=== PATIENT | female | born 1985 | race Caucasian/White ===

== ENCOUNTER 2016-10-01 21:21 | Inpatient (IN) | payer SELFPAY ==
[~2016-10-01] VITALS: Ht 175.3 cm; Wt 54.4 kg
[2016-10-01] MEDS ORDERED: HYDROCODONE/APAP 5/325MG 1 EACH TABLET ONE (21:43)
[2016-10-01] MEDS ORDERED: HYDROCODONE/APAP 5/325MG 1 EACH TABLET PO ONE (22:00)
[2016-10-01] MEDS ORDERED: HYDROMORPHONE INJ 2 MG/ML DISP.SYRIN ONE (22:53)
[2016-10-01] MEDS ORDERED: ONDANSETRON 4 MG TAB.RAPDIS ONE ×2 (22:54→23:43)
[2016-10-01] MEDS ORDERED: ONDANSETRON 4 MG TAB.RAPDIS SL ONE (23:00)
[2016-10-01] MEDS ORDERED: HYDROMORPHONE INJ 2 MG/ML DISP.SYRIN IM ONE (23:00)
[2016-10-02] MEDS ORDERED: MAG HYDROX/AL HYDROX/SIMETH 30 ML UDC PO PRN (00:30)
[2016-10-02] MEDS ORDERED: ZOLPIDEM TARTRATE 5 MG TABLET PO PRN (00:30)
[2016-10-02] MEDS ORDERED: Z GUARD REMEDY 2 OZ OINT TP PRN (00:30)
[2016-10-02] MEDS ORDERED: MAGNESIUM HYDROXIDE 30 ML UDC PO PRN (00:30)
[2016-10-02] MEDS ORDERED: ACETAMINOPHEN 325 MG TABLET PO PRN (00:30)
[2016-10-02 01:30] VITALS: BP 102/69
[2016-10-02] MEDS ORDERED: HYDROCODONE/APAP 5/325MG 1 EACH TABLET ONE (01:54)
[2016-10-02] MEDS: ONDANSETRON HCL/PF 4 MG/2 ML VIAL IVP PRN ×2 (02:26→20:23)
[2016-10-02] MEDS: HYDROCODONE/APAP 5/325MG 1 EACH TABLET PO PRN ×5 (02:27→23:32)
[2016-10-02] MEDS ORDERED: MORPHINE SULFATE INJ 4 MG/ML DISP.SYRIN ONE (03:27)
[2016-10-02] MEDS ORDERED: MORPHINE SULFATE INJ 2 MG/ML DISP.SYRIN ONE (03:34)
[2016-10-02] MEDS: MORPHINE SULFATE INJ 2 MG/ML DISP.SYRIN IV PRN ×5 (03:37→21:16)
[2016-10-02 05:56] VITALS: BP 102/69
[2016-10-02 07:31] VITALS: BP 122/76
[2016-10-02 16:00] VITALS: BP 112/78
[2016-10-02 16:29] LABS: BASOPHILS % (AUTO) 0.5 % (0.0-2.0); DIFF TOTAL % 100 %; EOSINOPHILS % (AUTO) 0.2 % (0.0-6.0); HEMATOCRIT 33 % (33-45); HEMOGLOBIN 11.2 g/dL (11.5-14.8); LYMPHOCYTES # (AUTO) 1.2 /CMM (0.8-4.8); LYMPHOCYTES % (AUTO) 20.3 % (20.0-44.0); MEAN CORPUSCULAR HEMOGLOBIN 29 PG (26.0-33.0); MEAN CORPUSCULAR HGB CONC 34 g/dl (31.0-36.0); MEAN CORPUSCULAR VOLUME 86 fL (82-100); MONOCYTES # (AUTO) 0.6 /CMM (0.1-1.30); MONOCYTES % (AUTO) 9.6 % (2.0-12.0); NEUTROPHILS # (AUTO) 4.2 /CMM (1.8-8.9); NEUTROPHILS % (AUTO) 69.4 % (43.0-81.0); PLATELET COUNT (AUTO) 250 /CMM (150-450); RED BLOOD CELL COUNT(AUTO) 3.84 MIL/uL (4.0-5.2); WHITE BLOOD COUNT (AUTO) 6.1 K/uL (4.3-11.0)
[2016-10-02 16:37] LABS: CALCIUM, SERUM 8.6 mg/dL (8.5-10.1); CREATININE 0.9 mg/dL (0.6-1.3); POTASSIUM 3.8 mmol/L (3.5-5.1)
[2016-10-02 17:33] LABS: IRON, SERUM 185 ug/dl (50-175); PERCENT SATURATION 52 % (14-33); TOTAL IRON BINDING CAPACITY 353 ug/dl (250-450)
[2016-10-02 20:00] VITALS: BP 104/65
[2016-10-03 01:50] VITALS: BP 110/69
[2016-10-03] MEDS: MORPHINE SULFATE INJ 2 MG/ML DISP.SYRIN IV PRN ×4 (01:53→22:09)
[2016-10-03 05:50] VITALS: BP 105/66
[2016-10-03 06:59] LABS: BASOPHILS % (AUTO) 0.3 % (0.0-2.0); DIFF TOTAL % 100 %; EOSINOPHILS # (AUTO) 0.1 /CMM (0.0-0.7); HEMATOCRIT 33 % (33-45); HEMOGLOBIN 10.9 g/dL (11.5-14.8); LYMPHOCYTES # (AUTO) 1.5 /CMM (0.8-4.8); LYMPHOCYTES % (AUTO) 25.7 % (20.0-44.0); MEAN CORPUSCULAR HEMOGLOBIN 29 PG (26.0-33.0); MEAN CORPUSCULAR HGB CONC 33 g/dl (31.0-36.0); MEAN CORPUSCULAR VOLUME 88 fL (82-100); MONOCYTES # (AUTO) 0.5 /CMM (0.1-1.30); MONOCYTES % (AUTO) 9.1 % (2.0-12.0); NEUTROPHILS # (AUTO) 3.7 /CMM (1.8-8.9); NEUTROPHILS % (AUTO) 63.9 % (43.0-81.0); PLATELET COUNT (AUTO) 245 /CMM (150-450); RED BLOOD CELL COUNT(AUTO) 3.76 MIL/uL (4.0-5.2); WHITE BLOOD COUNT (AUTO) 5.8 K/uL (4.3-11.0)
[2016-10-03 07:03] LABS: INR 1.03 (0.87-1.13); PROTHROMBIN TIME 11.1 SECS (9.5-12.7)
[2016-10-03 07:13] LABS: CALCIUM, SERUM 8.3 mg/dL (8.5-10.1); CREATININE 0.8 mg/dL (0.6-1.3); PHOSPHORUS 3.5 mg/dL (2.5-4.9); POTASSIUM 4.1 mmol/L (3.5-5.1)
[2016-10-03 08:00] VITALS: BP 102/65
[2016-10-03] MEDS: HYDROCODONE/APAP 5/325MG 1 EACH TABLET PO PRN ×2 (08:33→23:53)
[2016-10-03] MEDS ORDERED: ANESTHESIA TRAY IN PYXIS 1 EA TRAY MC ONE ×2 (10:26→13:50)
[2016-10-03] MEDS ORDERED: BACITRACIN 50000 UNITS/VIAL ONE (10:33)
[2016-10-03] MEDS ORDERED: BUPIVACAINE MPF 0.5% W/EPI INJ 30 ML VIAL ONE (11:28)
[2016-10-03 14:00] VITALS: BP 103/69
[2016-10-03 16:00] VITALS: BP 107/64
[2016-10-03 20:00] VITALS: BP 103/66
[2016-10-03] MEDS: ANCEF 1 GM/50 ML D5W IV SCH ×2 (20:13)
[2016-10-03] MEDS ORDERED: IV SET PRIMARY PUMP SET 1 EA INFUS.SET MC ONE (20:40)
[2016-10-03] MEDS ORDERED: SECONDARY IV SET 1 EA INFUS.SET MC ONE (20:40)
[2016-10-04] MEDS: MORPHINE SULFATE INJ 2 MG/ML DISP.SYRIN IV PRN ×4 (02:29→17:03)
[2016-10-04] MEDS: ANCEF 1 GM/50 ML D5W IV SCH ×2 (04:51)
[2016-10-04] MEDS: HYDROCODONE/APAP 5/325MG 1 EACH TABLET PO PRN ×3 (04:53→15:16)
[2016-10-04 06:39] LABS: BASOPHILS % (AUTO) 0.3 % (0.0-2.0); DIFF TOTAL % 100 %; EOSINOPHILS % (AUTO) 0.3 % (0.0-6.0); HEMATOCRIT 30 % (33-45); HEMOGLOBIN 9.8 g/dL (11.5-14.8); LYMPHOCYTES # (AUTO) 1.9 /CMM (0.8-4.8); LYMPHOCYTES % (AUTO) 24.5 % (20.0-44.0); MEAN CORPUSCULAR HEMOGLOBIN 29 PG (26.0-33.0); MEAN CORPUSCULAR HGB CONC 33 g/dl (31.0-36.0); MEAN CORPUSCULAR VOLUME 88 fL (82-100); MONOCYTES # (AUTO) 0.6 /CMM (0.1-1.30); MONOCYTES % (AUTO) 8.1 % (2.0-12.0); NEUTROPHILS # (AUTO) 5.2 /CMM (1.8-8.9); NEUTROPHILS % (AUTO) 66.8 % (43.0-81.0); PLATELET COUNT (AUTO) 219 /CMM (150-450); RED BLOOD CELL COUNT(AUTO) 3.38 MIL/uL (4.0-5.2); WHITE BLOOD COUNT (AUTO) 7.8 K/uL (4.3-11.0)
[2016-10-04 07:01] LABS: CREATININE 0.8 mg/dL (0.6-1.3); PHOSPHORUS 3.4 mg/dL (2.5-4.9); POTASSIUM 3.3 mmol/L (3.5-5.1)
[2016-10-04 08:00] VITALS: BP 105/68
[2016-10-04] MEDS ORDERED: HYDR-3326 PO (09:05)
[2016-10-04] MEDS ORDERED: CEPH-570 PO (09:05)
[2016-10-04] MEDS ORDERED: POTASSIUM CHLORIDE 20 MEQ TAB.PRT.SR PO ONE (09:30)
== END 2016-10-04 18:28 | disposition home health service (06) | DRG 494 ==
LOC: ER 21:24 → MEDSG2 10-02 00:16
PROVIDERS: ADMIT Family Medicine; ATTEND Family Medicine
PROC: 0PSC06Z Reposition Right Humeral Head with Intramedullary Internal Fixation Device, Open Approach (ICD-10-PCS; principal; 2016-10-03 12:02)
DX: S42.211A Unspecified displaced fracture of surgical neck of right humerus, initial encounter for closed fracture (principal); W19.XXXA Unspecified fall, initial encounter; Y93.I9 Activity, other involving external motion; Y92.009 Unspecified place in unspecified non-institutional (private) residence as the place of occurrence of the external cause; Y99.9 Unspecified external cause status; D50.9 Iron deficiency anemia, unspecified
CPT/HCPCS: 36415; 71010-TC; 73060-TC; 73200-TC; 80048-TC; 80061-TC; 83540-TC; 83735-TC; 84100-TC; 84703-TC; 85025-TC; 85027-TC; 85610-TC; 85730-TC; 86850-TC; 86901; 87081-TC; A4606; A6209; A6402; A6403; J0690; J1170; J2270; J2405; J3490; J7060; Q0162; Z7610

== ENCOUNTER 2019-06-11 01:00 | Emergency (ER) | payer OTHER, MEDICAID ==
[~2019-06-11] VITALS: Ht 177.8 cm; Wt 59.4 kg
[~2019-06-11 01:00] MED LIST: CEPH-570 PO; HYDR-3974 PO
--- NOTE | 2019-06-11 01:26 | NUR ---
BIBSELF FROM HOME TO ER BED 16. AAOX4, NO RESP DISTRESS NOTED. AMBULATORY. PT APPEARS ANXIOUS. C/O ABDOMINAL PAIN X 2 DAYS. PT REPORTS PAIN CRAMPING 4/10. PT REPORTS HAVING BLEEDING WHICH IS NOT HEAVY HOW SHE GETS IT. LMP WAS REPORTED BY PT ABOUT A MONTH AGO CANT RECAL EXACT DATE. PT ALSO COMPLAINS OF CHEST PAIN FOR THE PAST 3 DAYS. PT REPORT FEELING OF MUSCLE TENSION AND ACHING. NON RADIATING 4/10 CONSTANT. MD WAS AT BEDSIDE FOR EVAL. ORDERS RECEIVED, NOTED AND CARRIED OUT. EKG AT BEDSIDE BY EMT. URINE COLLECTED AND SENT TO LAB
[2019-06-11] MEDS ORDERED: LORAZEPAM 1 MG TABLET ONE (01:37)
[2019-06-11 01:47] LABS: BASOPHILS % (AUTO) 0.5 % (0.0-2.0); EOSINOPHILS % (AUTO) 1.1 % (0.0-6.0); HEMATOCRIT 35 % (33-45); HEMOGLOBIN 11.9 g/dL (11.5-14.8); LYMPHOCYTES # (AUTO) 1.5 /CMM (0.8-4.8); LYMPHOCYTES % (AUTO) 35.8 % (20.0-44.0); MEAN CORPUSCULAR HGB CONC 34 g/dl (31.0-36.0); MEAN CORPUSCULAR VOLUME 87 fL (82-100); MONOCYTES # (AUTO) 0.4 /CMM (0.1-1.30); MONOCYTES % (AUTO) 10.2 % (2.0-12.0); NEUTROPHILS # (AUTO) 2.2 /CMM (1.8-8.9); NEUTROPHILS % (AUTO) 52.4 % (43.0-81.0); PLATELET COUNT (AUTO) 254 /CMM (150-450); RED BLOOD CELL COUNT(AUTO) 4.04 MIL/uL (4.0-5.2); WHITE BLOOD COUNT (AUTO) 4.1 K/uL (4.3-11.0)
[2019-06-11 01:54] LABS: CALCIUM, SERUM 9.8 mg/dL (8.5-10.1); CARBON DIOXIDE 25 mmol/L (21-32); CHLORIDE 103 mmol/L (98-107); CREATININE 0.9 mg/dL (0.6-1.3); GLUCOSE 97 mg/dL (74-106); POTASSIUM 3.8 mmol/L (3.5-5.1); SODIUM SERUM 140 mmol/L (136-145); UREA NITROGEN, BLOOD 14 mg/dL (7-18)
[2019-06-11] MEDS ORDERED: LORAZEPAM 1 MG TABLET PO ONE (02:00)
[2019-06-11 02:07] LABS: ALANINE AMINOTRANSFERASE 10 U/L (12-78); ALBUMIN 4.1 g/dL (3.4-5.0); ALKALINE PHOSPHATASE 62 U/L (46-116); ASPARTATE AMINOTRANSFERASE 10 U/L (15-37); B-TYPE NATRIURETIC PEPTIDE 18 PG/ML (0-125); BILIRUBIN,DIRECT 0.1 mg/dL (0.0-0.2); BILIRUBIN,TOTAL 0.3 mg/dL (0.2-1.0); TOTAL PROTEIN, SERUM 7.4 g/dL (6.4-8.2)
--- NOTE | 2019-06-11 05:25 | NUR ---
Patient discharged to home in stable condition. Written and verbal after care instructions given. Patient verbalizes understanding of instruction. Pt ambulatory with a steady gait
[2019-06-11 05:26] VITALS: BP 116/78
== END 2019-06-11 05:27 | disposition home or self-care (01) ==
LOC: ER 01:05
DX: N92.0 Excessive and frequent menstruation with regular cycle (principal); R10.2 Pelvic and perineal pain; R07.89 Other chest pain; F41.9 Anxiety disorder, unspecified; Z98.890 Other specified postprocedural states
CPT/HCPCS: 36415; 71045-TC; 80048-TC; 80076-TC; 83880; 84484-TC; 84703-TC; 85025-TC

== ENCOUNTER 2020-09-24 15:27 | Emergency (ER) | payer MEDICAID, OTHER ==
[~2020-09-24] VITALS: Ht 177.8 cm; Wt 63.5 kg
[2020-09-24 15:38] VITALS: BP 108/72
--- NOTE | 2020-09-24 16:45 | NUR ---
Patient discharged to home in stable condition. Written and verbal after care instructions given. Patient verbalizes understanding of instruction.
== END 2020-09-24 16:48 | disposition home or self-care (01) ==
LOC: ER 15:35
DX: R07.89 Other chest pain (principal); Z98.890 Other specified postprocedural states; Z79.899 Other long term (current) drug therapy